=== PATIENT | male | born 1965 | race Caucasian/White ===

== ENCOUNTER 2017-02-10 11:49 | Inpatient (IN) | payer OTHER ==
[~2017-02-10] VITALS: Ht 195.6 cm; Wt 99.0 kg
[2017-02-10] MEDS ORDERED: SODIUM CHLORIDE 0.9% 1000ML 1,000 ML IV STA (12:08)
[2017-02-10] MEDS ORDERED: DIPHTHERIA/TETANUS/PERTUSSIS 0.5 ML SYR/VIAL IM. ONE (12:15)
[2017-02-10 12:25] LABS: BASO % 0.2 %; BASO ABS # 0.02 K/uL (0-0.2); COMPLETE YES; EOS % 0.9 %; HEMATOCRIT 43.6 % (42-52); IG% 0.4 %; LYMPH % 12.9 %; MEAN CELL VOLUME 85.3 fL (80-100); MEAN CORPUSCULAR HEMOGLOBIN 29.5 pg (25-34); MEAN CORPUSCULAR HGB CONC 34.6 g/dl (32-36); MEAN PLATELET VOLUME 9.8 fL (7.4-10.4); MONO % 9.5 %; NEUT % 76.1 %; PLATELET COUNT 285 K/uL (130-400); RED BLOOD COUNT 5.11 M/uL (4.7-6.1); WHITE BLOOD COUNT 10.85 K/uL (4.8-10.8)
[2017-02-10 12:46] LABS: BLOOD UREA NITROGEN 19 mg/dl (7-18); BUN/CREATININE RATIO 14.6 (10-20); CARBON DIOXIDE 29 mmol/L (21-32); CHLORIDE 103 mmol/L (98-107); GLUCOSE 86 mg/dl (70-99); POTASSIUM 4.1 mmol/L (3.5-5.1); SODIUM 139 mmol/L (136-145)
[2017-02-10 12:50] LABS: CKMB/CK RATIO 2.3 (0-3.0)
--- NOTE | 2017-02-10 12:52 | DIAGNOSTIC IMAGING REPORT ---
CHEST ONE VIEW PORTABLE HISTORY: 51 years-old Male Chest Pain acute atypical chest pain. Initial exam. COMPARISON: None available TECHNIQUE: Portable upright AP view of the chest FINDINGS: Cardiomediastinal and hilar silhouettes are within normal limits. No pneumothorax, pleural effusion, focal airspace consolidation or overt pulmonary edema. The bones are grossly intact. IMPRESSION: No acute cardiopulmonary process. The above report was generated using voice recognition software. It may contain grammatical, syntax or spelling errors. Electronically signed by: Maverick Wylie M.D. 02/10/2017 12:50 PM Dictated Date/Time: 02/10/2017 12:50 PM
[2017-02-10] MEDS ORDERED: LIDOCAINE/EPINEPH/TETRACAINE 1 EA SYR EXT STA (12:56)
--- NOTE | 2017-02-10 13:55 | DIAGNOSTIC IMAGING REPORT ---
HEAD WITHOUT CONTRAST (CT) CLINICAL HISTORY: 51 years-old Male with syncope. Acute syncopal event TECHNIQUE: Multiple axial CT images of the head were obtained without contrast. A dose lowering technique was utilized adhering to the principles of ALARA. CT DOSE: 537.48 mGy.cm COMPARISON: None. FINDINGS: No acute intracranial hemorrhage, midline shift, mass, large territorial ischemia or abnormal extra-axial collection. The calvarium is intact. The paranasal sinuses, mastoid air cells, and middle ear cavities are clear. IMPRESSION: No acute intracranial abnormality. The above report was generated using voice recognition software. It may contain grammatical, syntax or spelling errors. Electronically signed by: Maverick Wylie M.D. 02/10/2017 1:54 PM Dictated Date/Time: 02/10/2017 1:51 PM
[2017-02-10] MEDS ORDERED: LIDOCAINE/EPINEPHRINE 1% 20 ML VIAL INFIL ONE (14:00)
[2017-02-10] MEDS ORDERED: PROP1CAP PO (14:07)
[2017-02-10] MEDS ORDERED: ASPI81TA28 PO (14:07)
[2017-02-10] MEDS ORDERED: LNX25 PO (14:07)
--- NOTE | 2017-02-10 14:44 | EMERGENCY ROOM VISIT NOTE ---
ED Visit Note I was asked by Dr. Higgins to perform laceration repair on this patient. Please see his dictation for full ED course and disposition. Exam reveals a 2.5 cm laceration to the right palm, proximal tibia thumb with overlying abrasion. There is a small amount of foreign material in the wound. Verbal consent was obtained to perform the procedure. LET gel had already been applied to the laceration. 3 ml of 1% buffered lidocaine was used to further anesthetize the laceration. Once the patient was anesthetized, the Pulsavac irrigation system was used to irrigate the wound with 1 L sterile saline. A small amount of tissue was debated. The wound was explored and no foreign bodies were seen. The laceration was repaired using 3 simple interrupted 5-0 nylon sutures with the wound edges being well approximated. The patient tolerated the procedure well. Hemostasis was achieved.
[2017-02-10] MEDS ORDERED: HEPARIN 25000 UNIT/500 ML D5W ONE (15:28)
[2017-02-10] MEDS ORDERED: ALUMINUM/MAGNESIUM/SIMETH (MAALOX MAX) 30 ML UDC PO PRN (15:30)
[2017-02-10] MEDS ORDERED: MAGNESIUM HYDROXIDE SUSP 30 ML UDC PO PRN (15:30)
[2017-02-10] MEDS ORDERED: ONDANSETRON INJ 2 MG/ML 2 ML VIAL IV PRN (15:30)
[2017-02-10] MEDS ORDERED: METOPROLOL TARTRATE 1 MG/ML VIAL IV PRN (15:30)
[2017-02-10] MEDS ORDERED: ZOLPIDEM TARTRATE 5 MG TAB PO PRN (15:30)
[2017-02-10] MEDS ORDERED: NITROGLYCERIN 0.4 MG SL PER TAB CHARGE SL PRN (15:30)
[2017-02-10] MEDS ORDERED: ACETAMINOPHEN 325 MG TAB PO PRN (15:30)
[2017-02-10] MEDS ORDERED: POLYETHYLENE (MIRALAX) 17 GM PACK PO PRN (15:30)
[2017-02-10 15:35] VITALS: O2SAT 99; Ht 195.6 cm; Wt 99.0 kg
[2017-02-10] MEDS ORDERED: DIGOXIN 0.25 MG TAB PO SCH (16:00)
--- NOTE | 2017-02-10 18:15 | History and Physical ---
History & Physical Date & Time of Service: Feb 10, 2017 at 18:15 Chief Complaint: Atrial Flutter, Syncope Primary Care Physician: Craig Lang MD History of Present Illness Source: patient this a 51 yo Male with hx of Paroxysmal Afib Dx at age 27 , has been rate controlled with Rythmol( Propafenone ) and Digoxin -on Aspirin 81 mg for stroke prevention pt follows with EP Cardiology with [facility] in [place] , pt was participating in 5 Informaat run today , after running for a mile -he felt very warm and lightheaded , synopsized, fell on ground face down , mentions of losing consciousness for brief 10-15 sec , sustained mild bruise , laceration on face , hands and knees He managed to get up instantly , did not had any SOB , chest heaviness -retuned back to race and completed 5 K run he continued to experience palpitation ,came to ER for evaluation found to be in rapid Afib /flutter Past Medical/Surgical History Medical Problems: (1) Atrial fibrillation Status: Resolved Social History Smoking Status: Never Smoker Allergies Coded Allergies: No Known Allergies (Unverified , 02/10/17) Home Medications Scheduled Aspirin (Aspirin Ec), 81 MG PO DAILY Digoxin (Digoxin), 0.25 MCG PO DAILY Propafenone Hcl (Rythmol Sr), 300 MG PO BID Review of Systems Constitutional: No fever, No chills, No sweats, No weight loss, No weakness, No fatigue, No problem reported Eyes: No worsening of vision, No eye pain, No redness, No discharge, No diplopia, No problem reported ENT: No hearing loss, No unusual epistaxis, No nasal symptoms, No sore throat, No tinnitus, No dental problems, No trouble swallowing, No problem reported Cardiovascular: + palpitations, + problem reported (syncope ) Musculoskeletal: + problem reported (bruise /laceration on face /hands and knees form the fall ) Neurologic: + problem reported (syncope and loss of consciousness for breif seconds ) Physical Exam Vital Signs Date Time Temp Pulse Resp B/P (MAP) Pulse Ox O2 Delivery O2 Flow Rate FiO2 02/10/17 16:43 88 20 143/88 90 02/10/17 16:08 82 20 131/100 99 Room Air 02/10/17 16:00 82 02/10/17 15:35 99 Room Air 02/10/17 15:12 72 20 136/93 99 Room Air 02/10/17 14:20 81 20 148/86 98 Room Air 02/10/17 13:28 85 20 127/90 99 Room Air 02/10/17 12:06 99 Room Air 02/10/17 12:05 100 Room Air 02/10/17 12:04 100 02/10/17 11:52 36.7 93 17 125/64 98 Room Air General Appearance: no apparent distress ENT: + pertinent finding (bruise in lower face and upper and lowe lips from fall , no active bleeding ) Neck: supple Respiratory/Chest: lungs clear, normal breath sounds Cardiovascular: + irregularly irregular Abdomen/GI: non tender, soft Neurologic/Psych: no motor/sensory deficits, alert, oriented x 3 Skin: + pertinent finding (briuse in knee , hands and face /superfical laceration due to fall ) Diagnostics Laboratory Results Results Past 24 Hours Test 02/10/17 12:00 Range/Units White Blood Count 10.85 4.8-10.8 K/uL Red Blood Count 5.11 4.7-6.1 M/uL Hemoglobin 15.1 14.0-18.0 g/dL Hematocrit 43.6 42-52 % Mean Corpuscular Volume 85.3 80-100 fL Mean Corpuscular Hemoglobin 29.5 25-34 pg Mean Corpuscular Hemoglobin Concent 34.6 32-36 g/dl Platelet Count 285 130-400 K/uL Mean Platelet Volume 9.8 7.4-10.4 fL Neutrophils (%) (Auto) 76.1 % Lymphocytes (%) (Auto) 12.9 % Monocytes (%) (Auto) 9.5 % Eosinophils (%) (Auto) 0.9 % Basophils (%) (Auto) 0.2 % Neutrophils # (Auto) 8.26 1.4-6.5 K/uL Lymphocytes # (Auto) 1.40 1.2-3.4 K/uL Monocytes # (Auto) 1.03 0.11-0.59 K/uL Eosinophils # (Auto) 0.10 0-0.5 K/uL Basophils # (Auto) 0.02 0-0.2 K/uL RDW Standard Deviation 40.1 36.4-46.3 fL RDW Coefficient of Variation 12.8 11.5-14.5 % Immature Granulocyte % (Auto) 0.4 % Immature Granulocyte # (Auto) 0.04 0.00-0.02 K/uL Prothrombin Time 11.0 9.0-12.0 SECONDS Prothromb Time International Ratio 1.0 0.9-1.1 Activated Partial Thromboplast Time 27.2 21.0-31.0 SECONDS Partial Thromboplastin Ratio 1.0 D-Dimer 630 0-500 ug/L FEU Sodium Level 139 136-145 mmol/L Potassium Level 4.1 3.5-5.1 mmol/L Chloride Level 103 98-107 mmol/L Carbon Dioxide Level 29 21-32 mmol/L Anion Gap 7.0 3-11 mmol/L Blood Urea Nitrogen 19 7-18 mg/dl Creatinine 1.30 0.60-1.40 mg/dl Est Creatinine Clear Calc Drug Dose 83.8 ml/min Estimated GFR () 72.7 Estimated GFR (Non- 62.7 BUN/Creatinine Ratio 14.6 10-20 Random Glucose 86 70-99 mg/dl Calcium Level 9.0 8.5-10.1 mg/dl Total Creatine Kinase 209 39-308 U/L Creatine Kinase MB 4.8 0.5-3.6 ng/ml Creatine Kinase MB Ratio 2.3 0-3.0 Troponin I < 0.015 0-0.045 ng/ml Digoxin Level 0.9 0.8-2.0 ng/ml CXR normal EKG Aflutter Impression Assessment and Plan 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 /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: Hx paroxysmal afib -has been on Rythmol /Digoxin presented with rapid afib /possible lead to syncope admit to tele Cardiology eval requested pt is continued with out pt antiarrhythmic IV heparin ( CT head -negative for any bleed due to fall ) SYNCOPE : possible due to above no complain of chest pain or SOB serial cardiac markers ordered /ECHO ordered for wall motion abnormality monitor in tele FULL CODE DVT PROPHYLAXIS : IV heparin DISPOSITION : expected to be discharged home when medically stable Level of Care Telemetry Advanced Directives Existing Living Will: No Existing Power of Test Development Engineer: No VTE Prophylaxis VTE Risk Assessment Done? Y/N: Yes Risk Level: Low Given or contraindicated: Other Anticoagulation (IV heparin ) Additional Copies To Craig Lang MD
--- NOTE | 2017-02-10 19:01 | EMERGENCY ROOM VISIT NOTE ---
History Report prepared by David: Marizol Olivas Under the Supervision of: Dr. Jb Higgins D.O. 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 The patient was running a 5k when he started to feel hot around the mile niyah. He kept running and ended up losing consciousness. He fell to the ground and was there for about 8-12 seconds. He reports cuts to his hands, knees, and face. He denies any chest pain, SOB, nausea, vomiting, diarrhea, dysuria, headache, change in vision, neck pain, knee pain, missing teeth, or misalignment of the teeth. The patient has a history of atrial fibrillation since age 27 which comes and goes. He is on digoxin, Rythmol, and aspirin. He denies any missed medications. He notes that 1.5 weeks ago, he felt that he had less power while biking. He has not been biking since then. He has not felt weak since then. He is usually able to tell when he is in a fib as simple activities become difficult. It has been several years since he was last in a fib. He is unsure when his last tetanus shot was. 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 Pt denies change in vision, knee pain, missing teeth, or misalignment of the teeth Review of Systems See HPI for pertinent positives & negatives. A total of 10 systems reviewed and were otherwise negative. Past Medical & Surgical Medical Problems: (1) Atrial fibrillation (2) Atrial flutter (3) Syncope Family History No pertinent family history stated. Social History Marital Status: Current/Historical Medications Scheduled Aspirin (Aspirin Ec), 81 MG PO DAILY Digoxin (Digoxin), 0.25 MCG PO DAILY Propafenone Hcl (Rythmol Sr), 300 MG PO BID Allergies Coded Allergies: No Known Allergies (Unverified , 02/10/17) Physical Exam Vital Signs Date Time Temp Pulse Resp B/P (MAP) Pulse Ox O2 Delivery O2 Flow Rate FiO2 02/10/17 15:12 72 20 136/93 99 Room Air 02/10/17 14:20 81 20 148/86 98 Room Air 02/10/17 13:28 85 20 127/90 99 Room Air 02/10/17 12:06 99 Room Air 02/10/17 12:05 100 Room Air 02/10/17 12:04 100 02/10/17 11:52 36.7 93 17 125/64 98 Room Air Physical Exam GENERAL: sitting up in bed, alert, well appearing, well nourished, no distress, non-toxic HEAD: normal cephalic, abrasion over the upper lip and lower lip. EYE EXAM: normal conjunctiva, PERRL and EOM's grossly intact OROPHARYNX: no exudate, no erythema, lips, buccal mucosa, and tongue normal and mucous membranes are moist EARS: TMs clear b/l NECK: supple, no nuchal rigidity, no adenopathy, non-tender CHEST: stable to compression anteriorly and posteriorly LUNGS: clear to auscultation. Normal chest wall mechanics HEART: irregularly irregular, no murmurs, S1 normal and S2 normal ABDOMEN: abdomen soft, non-tender, normo-active bowel sounds, no masses, no rebound or guarding. PELVIS: stable to compression anteriorly and posteriorly BACK: Back is symmetrical on inspection and there is no deformity, no midline tenderness, no CVA tenderness. UPPER EXTREMITIES: abrasion at the bases of bilateral palms with 1.5 cm laceration on the right palm, mild venous oozing. Full active and passive range of motion of all joints without tenderness to palpation LOWER EXTREMITIES: Abrasion over the bilateral knees, full active and passive range of motion of all joints without tenderness to palpation NEURO EXAM: Normal sensorium, cranial nerves II-XII grossly intact, normal speech, no gross weakness of arms, no gross weakness of legs. GCS: 15. Medical Decision & Procedures ER Provider Diagnostic Interpretation: Radiology results as stated below per my review and the radiologist's interpretation: CHEST ONE VIEW PORTABLE HISTORY: 51 years-old Male Chest Pain acute atypical chest pain. Initial exam. COMPARISON: None available TECHNIQUE: Portable upright AP view of the chest FINDINGS: Cardiomediastinal and hilar silhouettes are within normal limits. No pneumothorax, pleural effusion, focal airspace consolidation or overt pulmonary edema. The bones are grossly intact. IMPRESSION: No acute cardiopulmonary process. The above report was generated using voice recognition software. It may contain grammatical, syntax or spelling errors. Electronically signed by: Maverick Wylie M.D. 02/10/2017 12:50 PM Dictated Date/Time: 02/10/2017 12:50 PM HEAD WITHOUT CONTRAST (CT) CLINICAL HISTORY: 51 years-old Male with syncope. Acute syncopal event TECHNIQUE: Multiple axial CT images of the head were obtained without contrast. A dose lowering technique was utilized adhering to the principles of ALARA. CT DOSE: 537.48 mGy.cm COMPARISON: None. FINDINGS: No acute intracranial hemorrhage, midline shift, mass, large territorial ischemia or abnormal extra-axial collection. The calvarium is intact. The paranasal sinuses, mastoid air cells, and middle ear cavities are clear. IMPRESSION: No acute intracranial abnormality. The above report was generated using voice recognition software. It may contain grammatical, syntax or spelling errors. Electronically signed by: Maverick Wylie M.D. 02/10/2017 1:54 PM Dictated Date/Time: 02/10/2017 1:51 PM Laboratory Results 02/10/17 12:00 Red Blood Count 5.11, Mean Corpuscular Volume 85.3, Mean Corpuscular Hemoglobin 29.5, Mean Corpuscular Hemoglobin Concent 34.6, Mean Platelet Volume 9.8, Neutrophils (%) (Auto) 76.1, Lymphocytes (%) (Auto) 12.9, Monocytes (%) (Auto) 9.5, Eosinophils (%) (Auto) 0.9, Basophils (%) (Auto) 0.2, Neutrophils # (Auto) 8.26, Lymphocytes # (Auto) 1.40, Monocytes # (Auto) 1.03, Eosinophils # (Auto) 0.10, Basophils # (Auto) 0.02 02/10/17 12:00 Test 02/10/17 12:00 White Blood Count 10.85 K/uL (4.8-10.8) Red Blood Count 5.11 M/uL (4.7-6.1) Hemoglobin 15.1 g/dL (14.0-18.0) Hematocrit 43.6 % (42-52) Mean Corpuscular Volume 85.3 fL (80-100) Mean Corpuscular Hemoglobin 29.5 pg (25-34) Mean Corpuscular Hemoglobin Concent 34.6 g/dl (32-36) Platelet Count 285 K/uL (130-400) Mean Platelet Volume 9.8 fL (7.4-10.4) Neutrophils (%) (Auto) 76.1 % Lymphocytes (%) (Auto) 12.9 % Monocytes (%) (Auto) 9.5 % Eosinophils (%) (Auto) 0.9 % Basophils (%) (Auto) 0.2 % Neutrophils # (Auto) 8.26 K/uL (1.4-6.5) Lymphocytes # (Auto) 1.40 K/uL (1.2-3.4) Monocytes # (Auto) 1.03 K/uL (0.11-0.59) Eosinophils # (Auto) 0.10 K/uL (0-0.5) Basophils # (Auto) 0.02 K/uL (0-0.2) RDW Standard Deviation 40.1 fL (36.4-46.3) RDW Coefficient of Variation 12.8 % (11.5-14.5) Immature Granulocyte % (Auto) 0.4 % Immature Granulocyte # (Auto) 0.04 K/uL (0.00-0.02) Prothrombin Time 11.0 SECONDS (9.0-12.0) Prothromb Time International Ratio 1.0 (0.9-1.1) Activated Partial Thromboplast Time 27.2 SECONDS (21.0-31.0) Partial Thromboplastin Ratio 1.0 D-Dimer 630 ug/L FEU (0-500) Anion Gap 7.0 mmol/L (3-11) Est Creatinine Clear Calc Drug Dose 83.8 ml/min Estimated GFR () 72.7 Estimated GFR (Non- 62.7 BUN/Creatinine Ratio 14.6 (10-20) Calcium Level 9.0 mg/dl (8.5-10.1) Total Creatine Kinase 209 U/L (39-308) Creatine Kinase MB 4.8 ng/ml (0.5-3.6) Creatine Kinase MB Ratio 2.3 (0-3.0) Troponin I < 0.015 ng/ml (0-0.045) Digoxin Level 0.9 ng/ml (0.8-2.0) Laboratory results per my review. Medications Administered Medications (Trade) Dose Ordered Sig/Cheryl Route Start Time Stop Time Status Last Admin Dose Admin Sodium Chloride 1,000 ml @ 999 mls/hr Q1H1M STAT IV 02/10/17 12:08 02/10/17 13:08 DC 02/10/17 13:27 999 MLS/HR Diphtheria/ Pertussis/Tetanus Vacc (Adacel Inj) 0.5 ml ONCE ONCE IM. 02/10/17 12:15 02/10/17 12:16 DC 02/10/17 13:27 0.5 ML Tetracaine/ Epinephrine/ Lidocaine (L.e.t. Gel 4%/ 1:100/0.5%) 1 ea NOW STAT EXT 02/10/17 12:56 02/10/17 12:57 DC 02/10/17 13:27 1 EA ECG Indication: syncope Rate (beats per minute): 75 Rhythm: atrial flutter (with variable block) Findings: T-wave inversion (lead 3), other (normal intervals) ED Course ED COURSE: Vital signs were reviewed and showed normal vitals. The patients medical record was reviewed The above diagnostic studies were performed and reviewed. ED treatments and interventions as stated above. 1157: The patient was evaluated in room C3. A complete history and physical examination was performed. 1208: NSS 1000 ml @ 999 mls/hr IV. 1215: Adacel Inj 0.5 ml IM. 1256: LET Gel EXT. 1328: I reevaluated the patient. He is going to CT. He is agreeable to staying. 1441: I reviewed the patient's case with Dr. Grimes, [facility] hospitalist. She will evaluate the patient for further management. She recommends heparin drip and bolus. She recommends speaking with Dr. Enciso. 1500: Upon reevaluation, the patient is resting comfortably. I discussed my findings with the patient and he understands and agrees with the treatment plan. Based on the patients age, coexisting illnesses, exam and lab findings the decision to treat as an inpatient was made. The patient remained stable while under my care. The patient will be evaluated for further management. 1450: Heparin Sodium/Dextrose IV. 1507: I discussed the patient's case with Dr. Enciso [facility]. He agrees with anticoagulation and bringing him in to the hospital. Medical Decision Differential diagnosis includes etiologies such as vasovagal event, infection, hypoglycemia, electrolyte abnormalities, cardiac sources, intracerebral event, toxicologic, neurologic, as well as others were entertained. Patient is a 51-year-old male that presents to the ER following a syncopal episode while running. As a history of paroxysmal A. fib. He thinks the last time he was in this was over a year ago. Patient did get up and finish the race. Patient has no other complaints. He does have bilateral abrasions of the knees and right hand was repaired by my PA which was roughly 2 cm. Tetanus was updated. CT head was negative. Patient denied any hemoptysis, hematuria, hematemesis, or dark tarry stools. No previous brain bleeds. He was started on heparin drip. I discussed this case with cardiology and internal medicine. He was admitted for syncope likely secondary to atrial flutter. Sutures will need to be removed in 7 days. Medication Reconcilliation Current Medication List: was personally reviewed by me Blood Pressure Screening Patient's blood pressure: Normal blood pressure Blood pressure disposition: Did not require urgent referral Consults Time Called: 1432 Consulting Physician: Dr. Grimes [facility] hospitalist Returned Call: [phone] I reviewed the patient's case with her. She will evaluate the patient for further management. She recommends heparin drip and bolus. She recommends speaking with Dr. Enciso. Additional Consults: Time Called: 1450 Consulted Physician: Dr. Enciso [facility] Returned Call: [phone] Additional Comments: I discussed the patient's case with him. He agrees with anticoagulation and bringing him in to the hospital. Impression Primary Impression: Syncope Additional Impressions: Atrial flutter Laceration Scribe Attestation The scribe's documentation has been prepared under my direction and personally reviewed by me in its entirety. I confirm that the note above accurately reflects all work, treatment, procedures, and medical decision making performed by me. Departure Information Dispostion Being Evaluated By Hospitalist Referrals No Doctor, Assigned (PCP) Patient Instructions My [facility] Health Problem Qualifiers Primary Impression: Syncope Syncope type: unspecified Qualified Codes: R55 - Syncope and collapse Additional Impressions: Atrial flutter Atrial flutter type: typical Qualified Codes: I48.3 - Typical atrial flutter
[2017-02-10 19:27] VITALS: BP 130/78; PULSE 76; TEMP 36.7; O2SAT 97
[2017-02-10] MEDS ORDERED: PROPAFENONE HCL 150 MG TAB PO SCH (21:00)
[2017-02-10 22:51] LABS: PARTIAL THROMBOPLASTIN RATIO 2.7
[2017-02-10 22:52] LABS: CKMB/CK RATIO 1.9 (0-3.0)
[2017-02-10 23:35] VITALS: BP 113/73; PULSE 85; TEMP 36.9; O2SAT 98
[2017-02-11] VITALS (13 sets, daily range): BP systolic 91–123; BP diastolic 57–77; PULSE 58–88; TEMP 36.4–36.9; O2SAT 94–99
--- NOTE | 2017-02-11 01:03 | CARDIOLOGY CONSULTATION ---
DATE OF CONSULTATION: 02/10/2017 PRIMARY CARE PHYSICIAN: Dr. Brian Lang. INDICATIONS: Exercise-induced syncope, history of paroxysmal atrial fibrillation. HISTORY OF PRESENT ILLNESS: The patient is a 51-year-old male whose history per patient and review of records is notable for longstanding paroxysmal atrial fibrillation dating back to age 27. He has been maintained predominantly in sinus rhythm on a combination of digoxin and propafenone. He notes, in review of records recently and history recently, recent decline in exercise capacity, feels he may have been going in and out of atrial fibrillation for upwards of months. He notes 2 weeks ago having significant difficulty while exercising, riding a bicycle. Today, he participated in a 5K run, and while running, lost consciousness and fell to the ground, striking his knee, hands and face. He notes no acute precursor other than symptoms of feeling suddenly warm and flushed. Notes no sense of tachypalpitations. He awakened on the ground and immediately was able to get up and complete the race. He notes no stumble or fall as an inciting cause. He did feel he lost transient consciousness that caused the issue. Notes no associated chest pains. Notes no worsening shortness of breath. Notes no orthopnea, PND or peripheral edema. Notes no melena, hematochezia, dysuria or hematuria. Has been taking medications as prescribed. Weight is up approximately 10 pounds, but notes no acute change or abnormalities. He is, in the Emergency Room, alert and answering questions appropriately, abrasions being attended to. ALLERGIES: Noted to be none. MEDICATIONS: Per records were digoxin 250 mcg p.o. daily, propafenone 300 mg p.o. b.i.d. and aspirin 81 mg per day. PAST SURGICAL HISTORY: Notable for arthroscopic knee surgery, prior right shoulder surgery. FAMILY HISTORY: Notable for brother with atrial fibrillation. 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 He is a nonsmoker, rare alcohol user. He is usually active but has been slightly more sedentary recently. PHYSICAL EXAMINATION: VITAL SIGNS: Heart rate is 70-90 and irregular. Blood pressure is 136/90. HEENT: Normocephalic. There are abrasions of his face, nose and chin. There is no overt dental injury. NECK: Thin. There is no jugular venous distention. There are no carotid bruits. Carotid pulses are 2/4 without delay. LUNGS: Clear to auscultation. CARDIOVASCULAR: Irregularly irregular with normal S1, S2. There is no murmur, gallop or rub. PMI is nondisplaced. ABDOMEN: Soft, nontender. There is no palpable hepatosplenomegaly. There is no hepatojugular reflux. EXTREMITIES: Femoral and distal pulses are intact. There is an abrasion overlying left knee which is bandaged. There is no edema. NEUROLOGIC: He is alert and oriented, answering questions appropriately and in detail. DATA: EKG in the Emergency Room today demonstrates atrial fibrillation, rate of 75, nonspecific intraventricular conduction delay. LABORATORY STUDIES: White cell count is 10.8, hemoglobin is 15.1, hematocrit is 43.6. Sodium is 139, potassium is 4.1, chloride is 103, bicarbonate is 29, BUN is 19, creatinine is 1.3. CK is 209, MB fraction 4.8. Troponin is less than 0.015. D-dimer was elevated at 630. Head CT revealed no injury. Chest x-ray reveals no infiltrate or edema. IMPRESSION: A 51-year-old male with history of longstanding paroxysmal (lone) atrial fibrillation, who did suffer a syncopal event while running mildly competitive 5K. He was able to wake up promptly from the ground and jump up and finish the run. The patient is seen now in the Emergency Room due to the event. He is in atrial fibrillation. He is uncertain to the duration of arrhythmia. Notes he potentially could have been in and out of arrhythmia for some weeks or months. Current rates are controlled. We will plan on admitting to the hospital on IV heparin, continuing usual medications including propafenone and digoxin, assess for possible spontaneous conversion overnight. Echocardiogram has been ordered for a.m. The patient will be kept n.p.o. to consider whether indications are present for proceeding with transesophageal cardioversion versus anticoagulation and follow up given history of syncope. He will likely warrant a stress test as part of evaluation. Consideration may be made for change in antiarrhythmic therapy or further EP evaluation. IVONED
[2017-02-11 05:23] LABS: MEAN CELL VOLUME 86.4 fL (80-100); MEAN CORPUSCULAR HGB CONC 33.6 g/dl (32-36); MEAN PLATELET VOLUME 9.9 fL (7.4-10.4); PLATELET COUNT 245 K/uL (130-400); RED BLOOD COUNT 4.86 M/uL (4.7-6.1); WHITE BLOOD COUNT 9.02 K/uL (4.8-10.8)
[2017-02-11 05:46] LABS: PARTIAL THROMBOPLASTIN RATIO 4.1
[2017-02-11 05:56] LABS: BUN/CREATININE RATIO 11.6 (10-20); CALCIUM 8.2 mg/dl (8.5-10.1); CREATININE 1.1 mg/dl (0.60-1.40); MAGNESIUM 2.1 mg/dl (1.8-2.4); POTASSIUM 3.8 mmol/L (3.5-5.1)
[2017-02-11 06:02] LABS: CHOLESTEROL/HDL RATIO 2.4; CKMB/CK RATIO 1.8 (0-3.0); PHOSPHORUS 3.2 mg/dl (2.5-4.9)
[2017-02-11] MEDS: HEPARIN 25,000 UNIT/500ML D5W 500 ML IV PRN (08:29)
--- NOTE | 2017-02-11 09:11 | ECHOCARDIOGRAM REPORT ---
*NOTICE TO RECEIVING [employer] AGENCY This information is strictly Confidential and protected under [place] law. [place] law prohibits you from making any further disclosure of this information unless further disclosure is expressly permitted by the written consent of the person to whom it pertains or is authorized by law. A general authorization for the release of medical or other information is not sufficient for this purpose. Hospital accepts no responsibility if the information is made available to any other person, INCLUDING THE PATIENT. Interpretation Summary * Name: EV VERA Study Date: 02/11/2017 06:29 AM BP: 112/70 mmHg * Patient Location: C.2T\S\S239\S\2 HR: 75 * : 1965 (M/d/yyyy) Gender: Male Height: 77 in * Age: 51 yrs Ethnicity: [place] Weight: 230 lb * Ordering Physician: Leisa Grimes * Referring Physician: Self, Referred * Performed By: Shalini Butt RDCS * * Reason For Study: A-Flutter * BSA: 2.4 m2 * -- Conclusions -- * The left ventricle is normal in size. * There is borderline concentric left ventricular hypertrophy. * No regional wall motion abnormalities noted. * Ejection Fraction = 50-55%. * There is no significant valvular disease. * Mild aortic root dilatation. Procedure Details * A complete two-dimensional transthoracic echocardiogram was performed (2D, M-mode, Doppler and color flow Doppler). Left Ventricle * The left ventricle is normal in size. * There is borderline concentric left ventricular hypertrophy. * Ejection Fraction = 50-55%. * Left ventricular systolic function is normal. * No regional wall motion abnormalities noted. Right Ventricle * The right ventricle is normal in size and function. Atria * The left atrial size is normal. * Right atrial size is normal. * No ASD detected; PFO is not assessed. Mitral Valve * The mitral valve is normal. * There is no mitral valve stenosis. * There is trace mitral regurgitation. Tricuspid Valve * The tricuspid valve is normal. * There is no tricuspid stenosis. * There is trace tricuspid regurgitation. Aortic Valve * The aortic valve is trileaflet. * No hemodynamically significant valvular aortic stenosis. * No aortic regurgitation is present. Pulmonic Valve * The pulmonic valve is not well visualized. Great Vessels * Mild aortic root dilatation. Pericardium/Pleural * There is no pericardial effusion. Great Vessels * Normal inferior vena cava diameter and respiratory variation suggests normal central venous pressure. MMode 2D Measurements and Calculations IVSd 1.1 cm LVIDd 4.2 cm LVIDs 3.1 cm LVPWd 1.2 cm IVS/LVPW 0.92 FS 25.4 % EDV(Teich) 79.5 ml ESV(Teich) 39.3 ml EF(Teich) 50.5 % EDV(cubed) 75.2 ml ESV(cubed) 31.2 ml EF(cubed) 58.6 % LV mass(C)d 178.6 grams LV mass(C)dI 75.3 grams/m\S\2 CO(Teich) 2.8 l/min CI(Teich) 1.2 l/min/m\S\2 SV(Teich) 40.2 ml SI(Teich) 16.9 ml/m\S\2 CO(cubed) 3.1 l/min CI(cubed) 1.3 l/min/m\S\2 SV(cubed) 44.0 ml SI(cubed) 18.6 ml/m\S\2 Ao root diam 4.3 cm Ao root area 14.2 cm\S\2 ACS 2.3 cm LA dimension 2.7 cm asc Aorta Diam 3.6 cm LA/Ao 0.63 LVOT diam 2.0 cm LVOT area 3.3 cm\S\2 LVAd ap4 37.5 cm\S\2 LVLd ap4 8.5 cm EDV(MOD-sp4) 134.0 ml LVAs ap4 25.0 cm\S\2 LVLs ap4 7.4 cm ESV(MOD-sp4) 68.6 ml EF(MOD-sp4) 48.8 % LVAd ap2 38.9 cm\S\2 LVLd ap2 8.7 cm EDV(MOD-sp2) 145.0 ml LVAs ap2 24.0 cm\S\2 LVLs ap2 7.8 cm ESV(MOD-sp2) 63.2 ml EF(MOD-sp2) 56.4 % CO(MOD-sp4) 4.6 l/min CI(MOD-sp4) 1.9 l/min/m\S\2 SV(MOD-sp4) 65.4 ml SI(MOD-sp4) 27.6 ml/m\S\2 CO(MOD-sp2) 5.7 l/min CI(MOD-sp2) 2.4 l/min/m\S\2 SV(MOD-sp2) 81.8 ml SI(MOD-sp2) 34.5 ml/m\S\2 Doppler Measurements and Calculations MV E max luis a 52.9 cm/sec MV A max luis a 41.2 cm/sec MV E/A 1.3 MV dec time 0.29 sec Ao V2 max 69.8 cm/sec Ao max PG 1.9 mmHg Ao max PG (full) 0.23 mmHg JG(V,A) 3.1 cm\S\2 JG(V,D) 3.1 cm\S\2 LV V1 max PG 1.7 mmHg LV V1 max 65.5 cm/sec PA V2 max 105.9 cm/sec PA max PG 4.5 mmHg PA acc slope 243.9 cm/sec\S\2 PA acc time 0.17 sec PI max luis a 154.7 cm/sec PI max PG 9.6 mmHg PI dec slope 135.7 cm/sec\S\2 PI P1/2t 333.9 msec TR max luis a 85.3 cm/sec PA pr(Accel) 2.9 mmHg
[2017-02-11] MEDS ORDERED: NURSING VERBAL MED ORDER ONE (10:00)
[2017-02-11] MEDS ORDERED: BACITRACIN OINT 15 GM TUBE EXT PRN (10:00)
[2017-02-11] MEDS ORDERED: PERFLUTREN LIPID MICROSPHERE (DEFINITY) IV ONE (11:22)
[2017-02-11 12:41] LABS: PARTIAL THROMBOPLASTIN RATIO 2.1
[2017-02-11] MEDS ORDERED: MEPERIDINE HCL 50 MG/ML CARP ONE (12:59)
[2017-02-11] MEDS ORDERED: MIDAZOLAM HCL 1 MG/ML 2ML VIAL ONE (12:59)
[2017-02-11] MEDS ORDERED: BENZOCAIN/TETRACA/BUTAM SPRAY 200 APPLN/20 GM SPRY ONE (12:59)
[2017-02-11] MEDS ORDERED: CANNULA ONE ×2 (13:00)
[2017-02-11] MEDS ORDERED: POTASSIUM CHLORIDE 10 MEQ TABCR PO STA (14:34)
[2017-02-11] MEDS: ASPIRIN 81 MG ECTAB PO SCH (14:54)
--- NOTE | 2017-02-11 15:17 | PROGRESS NOTE ---
DATE: 02/11/2017 CARDIOLOGY CONSULTATION FOLLOWUP NOTE The patient seen and examined. Chart, medications, telemetry reviewed. SUBJECTIVE: The patient notes no complaints today other than minor abrasions to face, knees, hands, mild soreness at dentition without loose teeth. Notes no syncope or near syncope. Notes no chest pains. Notes no tachypalpitations. Remains in atrial fibrillation. OBJECTIVE: VITAL SIGNS: Heart rate is 92, blood pressure is 105/71. HEENT: Normocephalic. There is an abrasion healing in the nose, upper and lower lips. LUNGS: Clear to auscultation. CARDIOVASCULAR: Irregularly irregular There is no S3 gallop. ABDOMEN: Soft, nontender. EXTREMITIES: Without cyanosis or clubbing. There is no peripheral edema. There are intact distal pulses. DATA: Stress echocardiography earlier today, the patient exercised to a high level workload of 9 minutes and 30 seconds with very rapid response, heart response to exercise. The patient tolerating exercise; however, at heart rate above maximum for 7 minutes. Peak heart rate was greater than 200 beats per minute. There were no ST segment changes. Her echocardiographic findings suggest ischemia. There is no prolongation of QT or worsening conduction abnormalities. Transesophageal echocardiography, this was performed demonstrates normal left ventricular size, thickness and function. There is trace mitral and tricuspid insufficiency. There is no left atrial appendage, thrombus or mass. There is a trivial patent foramen ovale present. IMPRESSION AND PLAN: A 51-year-old male with history of standing paroxysmal atrial fibrillation, previously controlled in sinus rhythm predominantly with propafenone and digoxin, though notes recent change in frequency of atrial arrhythmias and subsequent syncopal event while exercising yesterday. Discussed findings in detail with the patient as well as patient's primary electrophysiology service and recommended after above testing that would continue to withhold digoxin and propafenone, will begin Tikosyn in a.m. anticipate at least 48 hours of telemetry monitoring. Will add low dose beta mukesh if necessary for rate control. Continue anticoagulation with heparin with planned transition to Eliquis for at least 30 days post-hospitalization. The patient is agreeable to plan. Baseline EKG ordered for a.m., potassium will be supplemented this evening. Will follow closely in the hospital. YELENA
--- NOTE | 2017-02-11 16:41 | EXERCISE STRESS ECHO ---
*NOTICE TO RECEIVING [employer] AGENCY This information is strictly Confidential and protected under [place] law. [place] law prohibits you from making any further disclosure of this information unless further disclosure is expressly permitted by the written consent of the person to whom it pertains or is authorized by law. A general authorization for the release of medical or other information is not sufficient for this purpose. Hospital accepts no responsibility if the information is made available to any other person, INCLUDING THE PATIENT. Interpretation Summary * Name: EV VERA Study Date: 02/11/2017 09:57 AM BP: 120/82 mmHg * Patient Location: C.2T\S\S239\S\2 HR: 114 * : 1965 (M/d/yyyy) Gender: Male Height: 77 in * Age: 51 yrs Ethnicity: [place] Weight: 244 lb * Ordering Physician: Vern Enciso * Referring Physician: Self, Referred * Performed By: Shalini Butt RDCS * * Reason For Study: A-Fib * BSA: 2.4 m2 * _ workload achieved. * There is no inducible ischemia noted at peak stress. * Normal resting wall motion and no stress-induced wall motion abnormality. * -- Conclusions -- * Baseline EKG Atrial fibrillation * There was an accelerated heart rate response to exercise, maximum heart rate 210 bpm. Procedure Details * ECHOEX, CPT #81811 * A contrast injection of Definity was performed to improve assessment of LV function. * Contrast was injected into an intravenous site in the left arm. * One vial of Definity ultrasound contrast was diluted in normal saline to a total volume of 10 ml. A total of '5' ml of solution was administered during imaging. * Lot # [id number] of Definity utilized for procedure. * Expiration date FEB 27. * The attending nurse who injected the contrast agent was Brittny Mendez RN. Left Ventricle * The left ventricle is normal in size. * There is normal left ventricular wall thickness. * Ejection Fraction = 55-60%. * Resting wall motion: Normal. Stress wall motion: Appropriate increase in Left ventricular systolic function and decrease in cavity size. No stress induced segmental wall motion abnormalities. Stress Parameters * Baseline EKG Atrial fibrillation * The stress ECG response was normal * The stress portion of this study was personally supervised by the undersigned interpreting physician. * Rest heart rate was '114' BPM. * Rest blood pressure was '120/82' * Maximum heart rate achieved was 210 bpm. * Maximum heart rate was 125 % of maximum age-predicted heart rate. * Maximum blood pressure was '137/59' * Total exercise time was '9:30' * Maximum exercise MET level achieved was '10.90' METS * Maximum treadmill speed was '4.20' miles per hour. * Maximum treadmill elevation was '16.00'% grade. * Exercise was terminated due to 'achieving target heart rate' * There was an accelerated heart rate response to exercise, maximum heart rate 210 bpm.
--- NOTE | 2017-02-11 16:46 | TEE ---
*NOTICE TO RECEIVING [employer] AGENCY This information is strictly Confidential and protected under [place] law. [place] law prohibits you from making any further disclosure of this information unless further disclosure is expressly permitted by the written consent of the person to whom it pertains or is authorized by law. A general authorization for the release of medical or other information is not sufficient for this purpose. Hospital accepts no responsibility if the information is made available to any other person, INCLUDING THE PATIENT. Interpretation Summary * Name: EV VERA Study Date: 02/11/2017 01:09 PM BP: 102/73 mmHg * Patient Location: C.2T\S\S239\S\2 HR: 90 * : 1965 (M/d/yyyy) Gender: Male Height: 76 in * Age: 51 yrs Ethnicity: CA Weight: 244 lb * Ordering Physician: Vern Enciso * Referring Physician: Self, Referred * Performed By: Alycia Sandoval RCS * * Reason For Study: A-FIB * BSA: 2.4 m2 * -- Conclusions -- * No thrombus is detected in the left atrial appendage. * No left atrial mass or thrombus visualized. * The left ventricle is normal in size. * There is normal left ventricular wall thickness. * The left ventricle is normal in structure and function. * Ejection Fraction = 55-60%. * A trivial patent foramen ovale is noted Procedure Details * MARIJA Probe #1 utilized for procedure. * The study was performed in Cardiopulmonary Department. * Time out was conducted by the physician, nurse, and cmm technician with positive identification of patient and procedure. * Informed consent for Transesophageal Echocardiogram was obtained prior to the procedure. * An intravenous line was placed. A topical anesthetic agent was used for oropharangeal anesthesia. A bite block was inserted. * Meperidine 37.5 mg administered for sedation. * Midazolam 6 mg administered for sedation. * The posterior oropharynx was anesthetized using a topical anesthetic spray. A bite guard was inserted. * The patient's vital signs, including blood pressure, heart rate, pulse oximetry and cardiac rhythm were monitored throughout the procedure . * A multifrequency, multiplane transesopheageal echocardiographic endoscope was inserted and manipulated in the standard fashion to achieve multiplane views. * The transesophageal probe was passed without difficulty. * A 2D transesophageal echocardiogram with spectral and color flow Doppler was performed. * Contrast injection with agitated saline was performed. * A 2D transesophageal echocardiogram with Doppler and color flow Doppler was performed. Left Ventricle * The left ventricle is normal in size. * There is normal left ventricular wall thickness. * The left ventricle is normal in structure and function. * Ejection Fraction = 55-60%. * The left ventricular wall motion is normal. Right Ventricle * The right ventricular cavity size is normal (basal dimension <4.2 cm in right ventricular apical 4-chamber view). * The right ventricular systolic function is normal. Atria * The left atrial size is normal. * No thrombus is detected in the left atrial appendage. * No left atrial mass or thrombus visualized. * Right atrial size is normal. * Patent foramen ovale Mitral Valve * The mitral valve anatomy is normal. * There is no mitral valve stenosis. * There is trace mitral regurgitation. Tricuspid Valve * The tricuspid valve anatomy is normal. * There is trace tricuspid regurgitation. Aortic Valve * The aortic valve is normal in structure and function. * No hemodynamically significant valvular aortic stenosis. * There is no significant aortic regurgitation. Pulmonic Valve * The pulmonic valve is normal in structure and function. Great Vessels * Mild aortic root dilatation. * Ascending aorta of normal dimension Pericardium * There is no pericardial effusion.
--- NOTE | 2017-02-11 21:52 | Progress Note ---
Internal Med Progress Note Date of Service: Feb 11, 2017. Provider Documentation: SUBJECTIVE: no complain of chest pain or SOB remains in rate controlled Afib /flutter OBJECTIVE: Vital Signs-as noted below Exam: General-no sign of distress Eyes-sclera non icteric ENT-superficial laceration on face Neck-no JVD Lungs-CTA Heart-irregular Abdomen-soft,non tender Extremities-superficial laceration on knees and hands Neuro-AAO x3 no focal deficit Lab data as noted below. ASSESSMENT & PLAN: AFLUTTER /AFIB: Hx paroxysmal afib -has been on Rythmol /Digoxin presented with rapid afib /possible lead to syncope Cardiology eval appreciated cardiac stress test -negative for stress induced ischemia MARIJA shows no evidence of Atrial appendage thrombus pt is continued with IV heparin antiarrhythmic changed to Tikosyn monitor in tele in next 48 hrs daily EKG to assess Qtc SYNCOPE : no further episode , possible due to above no complain of chest pain or SOB cardiac stress test negative for stress induced ischemia FULL CODE DVT PROPHYLAXIS : IV heparin DISPOSITION : expected to be discharged home when medically stable DVT PROPHYLAXIS IV heparin will be transition to Eliquis DISPOSITION expected to be discharged home when medically stable medicine follow up with Dr Lang Vital Signs: Date Time Temp Pulse Resp B/P (MAP) Pulse Ox O2 Delivery O2 Flow Rate FiO2 02/11/17 19:35 36.8 62 18 104/70 (81) 97 Room Air 02/11/17 16:00 Room Air 02/11/17 15:47 36.4 72 18 114/74 (87) 98 Room Air 02/11/17 15:05 63 20 112/75 (87) 98 Room Air 02/11/17 14:53 36.7 68 104/71 (82) 97 Room Air 02/11/17 14:44 101 14 101/65 (77) 95 Room Air 02/11/17 14:35 78 14 99/66 (77) 98 Room Air 02/11/17 14:23 92 14 105/71 (82) 96 Room Air 02/11/17 14:14 93 10 105/71 (82) 97 Room Air 02/11/17 14:04 87 12 105/71 (82) 98 Nasal Cannula 2 02/11/17 14:03 Nasal Cannula 2 02/11/17 14:00 82 12 98/69 96 Nasal Cannula 2 02/11/17 13:55 87 10 118/67 96 Nasal Cannula 2 02/11/17 13:51 Nasal Cannula 2 02/11/17 13:50 85 10 115/71 99 Nasal Cannula 2 02/11/17 13:45 78 15 123/77 96 Nasal Cannula 2 02/11/17 13:12 81 12 102/73 96 Room Air 02/11/17 12:00 Room Air 02/11/17 11:58 36.7 88 16 105/73 (84) 94 02/11/17 08:14 36.7 71 16 109/73 (85) 99 Room Air 02/11/17 08:00 Room Air 02/11/17 04:00 Room Air 02/11/17 03:50 36.8 75 16 112/70 (84) 98 Room Air 02/11/17 00:01 Room Air 02/10/17 23:35 36.9 85 16 113/73 (86) 98 Room Air Lab Results: Results Past 24 Hours Test 02/10/17 22:10 02/11/17 05:03 02/11/17 11:56 Range/Units Activated Partial Thromboplast Time 69.2 105.6 55.4 21.0-31.0 SECONDS Partial Thromboplastin Ratio 2.7 4.1 2.1 Total Creatine Kinase 232 205 39-308 U/L Creatine Kinase MB 4.4 3.7 0.5-3.6 ng/ml Creatine Kinase MB Ratio 1.9 1.8 0-3.0 Troponin I 0.022 0.019 0-0.045 ng/ml White Blood Count 9.02 4.8-10.8 K/uL Red Blood Count 4.86 4.7-6.1 M/uL Hemoglobin 14.1 14.0-18.0 g/dL Hematocrit 42.0 42-52 % Mean Corpuscular Volume 86.4 80-100 fL Mean Corpuscular Hemoglobin 29.0 25-34 pg Mean Corpuscular Hemoglobin Concent 33.6 32-36 g/dl RDW Standard Deviation 41.4 36.4-46.3 fL RDW Coefficient of Variation 13.0 11.5-14.5 % Platelet Count 245 130-400 K/uL Mean Platelet Volume 9.9 7.4-10.4 fL Sodium Level 141 136-145 mmol/L Potassium Level 3.8 3.5-5.1 mmol/L Chloride Level 106 98-107 mmol/L Carbon Dioxide Level 28 21-32 mmol/L Anion Gap 7.0 3-11 mmol/L Blood Urea Nitrogen 13 7-18 mg/dl Creatinine 1.10 0.60-1.40 mg/dl Est Creatinine Clear Calc Drug Dose 99.0 ml/min Estimated GFR () 89.0 Estimated GFR (Non- 76.8 BUN/Creatinine Ratio 11.6 10-20 Random Glucose 97 70-99 mg/dl Calcium Level 8.2 8.5-10.1 mg/dl Phosphorus Level 3.2 2.5-4.9 mg/dl Magnesium Level 2.1 1.8-2.4 mg/dl Triglycerides Level 69 0-150 mg/dl Cholesterol Level 163 0-200 mg/dl HDL Cholesterol 69 mg/dl LDL Cholesterol, Calculated 80 mg/dl VLDL Cholesterol, Calculated 14 mg/dl Cholesterol/HDL Ratio 2.4
[2017-02-12] MEDS: HEPARIN 25,000 UNIT/500ML D5W 500 ML IV PRN (01:16)
[2017-02-12 03:53] VITALS: BP 105/64; PULSE 70; TEMP 36.6; O2SAT 98
[2017-02-12 07:13] LABS: HEMATOCRIT 44.2 % (42-52); MEAN CORPUSCULAR HEMOGLOBIN 29.8 pg (25-34); MEAN CORPUSCULAR HGB CONC 34.6 g/dl (32-36); MEAN PLATELET VOLUME 9.8 fL (7.4-10.4); PLATELET COUNT 261 K/uL (130-400); RED BLOOD COUNT 5.14 M/uL (4.7-6.1); WHITE BLOOD COUNT 7.29 K/uL (4.8-10.8)
[2017-02-12 07:34] LABS: PARTIAL THROMBOPLASTIN RATIO 3.7
[2017-02-12 07:42] VITALS: BP 105/68; PULSE 54; TEMP 36.5; O2SAT 100
[2017-02-12 07:50] LABS: BUN/CREATININE RATIO 7.5 (10-20); CALCIUM 9.4 mg/dl (8.5-10.1); CREATININE 1.1 mg/dl (0.60-1.40); MAGNESIUM 2.1 mg/dl (1.8-2.4); POTASSIUM 3.9 mmol/L (3.5-5.1)
[2017-02-12 07:51] LABS: PHOSPHORUS 3.4 mg/dl (2.5-4.9)
[2017-02-12] MEDS: ASPIRIN 81 MG ECTAB PO SCH (09:00)
[2017-02-12] MEDS: DOFETILIDE 125 MCG CAP PO SCH ×2 (09:01→21:05)
[2017-02-12] MEDS ORDERED: APIXABAN 2.5 MG TAB PO ONE (09:46)
[2017-02-12] MEDS ORDERED: POTASSIUM CHLORIDE 10 MEQ TABCR PO ONE (10:30)
--- NOTE | 2017-02-12 11:20 | PROGRESS NOTE ---
DATE: 02/12/2017 The patient seen and examined. Chart, medications, telemetry reviewed. SUBJECTIVE: The patient notes no complaints this morning. Telemetry last evening demonstrated persistent atrial fibrillation with marked variability in heart rates, otherwise no issues. Longest RR interval was 2.5 seconds. OBJECTIVE: VITAL SIGNS: Heart rate is 54, blood pressure is 105/68. NECK: Thin. There is no jugular venous distention. Facial abrasions are healing. LUNGS: Clear. CARDIOVASCULAR: Irregularly irregular. ABDOMEN: Soft. EXTREMITIES: Free of edema. DATA: EKG this morning revealed atrial fibrillation, QT corrected to 419. IMPRESSION: A 51-year-old male with history of longstanding paroxysmal atrial fibrillation with recent syncopal spell, exertionally related. Digoxin and propafenone stopped. The patient begun on Tikosyn, first dose was administered this morning, and EKG post-administration demonstrates shortened QT interval of 372. We will plan on observing 48-72 hours in the hospital depending on clinical response, likely synchronized cardioversion if the patient does not spontaneously convert on his own. In the interim, we will switch heparin to apixaban, give additional supplement of potassium this morning, suspect the patient may require addition of low-dose beta mukesh to current regimen of Tikosyn. We will follow along in the hospital.
[2017-02-12 12:03] VITALS: BP 114/75; PULSE 71; TEMP 36.3; O2SAT 99
[2017-02-12] MEDS ORDERED: NURSING VERBAL MED ORDER ONE (12:15)
--- NOTE | 2017-02-12 12:58 | Progress Note ---
Internal Med Progress Note Date of Service: Feb 12, 2017. Provider Documentation: SUBJECTIVE: no complain of chest pain ,no palpitation or dizzy spell remains in Afib with rate controlled OBJECTIVE: Vital Signs-as noted below Exam: General-no sign of distress Eyes-sclera non icteric ENT-superficial laceration on face Neck-no JVD Lungs-CTA Heart-irregular Abdomen-soft,non tender Extremities-superficial laceration on knees and hands Neuro-AAO x3 no focal deficit Lab data as noted below. ASSESSMENT & PLAN: AFLUTTER /AFIB: Hx paroxysmal afib -has been on Rythmol /Digoxin presented with rapid afib /possible lead to syncope Cardiology eval appreciated cardiac stress test -negative for stress induced ischemia MARIJA shows no evidence of Atrial appendage thrombus antiarrhythmic changed to Tikosyn started on Eliquis today daily EKG to assess Qtc cont to monitor in tele may need DC cardioversion if dose not convert to sinus with Medication Cardiology following closely SYNCOPE : no further episode , possible due to above no complain of chest pain or SOB cardiac stress test negative for stress induced ischemia FULL CODE DVT PROPHYLAXIS : Eliquis DISPOSITION expected to be discharged home when medically stable medicine follow up with Dr Lang Follows with Cardiology in [place] Dr Kwame Almazan with [facility] interested to establish care with Cardiology in [place] Vital Signs: Date Time Temp Pulse Resp B/P (MAP) Pulse Ox O2 Delivery O2 Flow Rate FiO2 02/12/17 12:03 36.3 71 20 114/75 (88) 99 Room Air 02/12/17 12:00 Room Air 02/12/17 08:00 Room Air 02/12/17 07:42 36.5 54 20 105/68 (80) 100 Room Air 02/12/17 04:00 Room Air 02/12/17 03:53 36.6 70 16 105/64 (78) 98 Room Air 02/12/17 00:01 Room Air 02/11/17 23:26 36.9 58 16 91/57 (68) 96 Room Air 02/11/17 20:00 Room Air 02/11/17 19:35 36.8 62 18 104/70 (81) 97 Room Air 02/11/17 16:00 Room Air 02/11/17 15:47 36.4 72 18 114/74 (87) 98 Room Air 02/11/17 15:05 63 20 112/75 (87) 98 Room Air 02/11/17 14:53 36.7 68 104/71 (82) 97 Room Air 02/11/17 14:44 101 14 101/65 (77) 95 Room Air 02/11/17 14:35 78 14 99/66 (77) 98 Room Air 02/11/17 14:23 92 14 105/71 (82) 96 Room Air 02/11/17 14:14 93 10 105/71 (82) 97 Room Air 02/11/17 14:04 87 12 105/71 (82) 98 Nasal Cannula 2 02/11/17 14:03 Nasal Cannula 2 02/11/17 14:00 82 12 98/69 96 Nasal Cannula 2 02/11/17 13:55 87 10 118/67 96 Nasal Cannula 2 02/11/17 13:51 Nasal Cannula 2 02/11/17 13:50 85 10 115/71 99 Nasal Cannula 2 02/11/17 13:45 78 15 123/77 96 Nasal Cannula 2 02/11/17 13:12 81 12 102/73 96 Room Air Lab Results: Results Past 24 Hours Test 02/12/17 06:49 Range/Units White Blood Count 7.29 4.8-10.8 K/uL Red Blood Count 5.14 4.7-6.1 M/uL Hemoglobin 15.3 14.0-18.0 g/dL Hematocrit 44.2 42-52 % Mean Corpuscular Volume 86.0 80-100 fL Mean Corpuscular Hemoglobin 29.8 25-34 pg Mean Corpuscular Hemoglobin Concent 34.6 32-36 g/dl RDW Standard Deviation 41.0 36.4-46.3 fL RDW Coefficient of Variation 12.8 11.5-14.5 % Platelet Count 261 130-400 K/uL Mean Platelet Volume 9.8 7.4-10.4 fL Activated Partial Thromboplast Time 96.2 21.0-31.0 SECONDS Partial Thromboplastin Ratio 3.7 Sodium Level 139 136-145 mmol/L Potassium Level 3.9 3.5-5.1 mmol/L Chloride Level 103 98-107 mmol/L Carbon Dioxide Level 28 21-32 mmol/L Anion Gap 8.0 3-11 mmol/L Blood Urea Nitrogen 8 7-18 mg/dl Creatinine 1.10 0.60-1.40 mg/dl Est Creatinine Clear Calc Drug Dose 99.0 ml/min Estimated GFR () 89.0 Estimated GFR (Non- 76.8 BUN/Creatinine Ratio 7.5 10-20 Random Glucose 104 70-99 mg/dl Calcium Level 9.4 8.5-10.1 mg/dl Phosphorus Level 3.4 2.5-4.9 mg/dl Magnesium Level 2.1 1.8-2.4 mg/dl
[2017-02-12 15:46] VITALS: BP 118/84; PULSE 76; TEMP 36.8; O2SAT 96
[2017-02-12 19:35] VITALS: BP 105/74; PULSE 68; TEMP 36.9; O2SAT 99
[2017-02-12] MEDS: APIXABAN 2.5 MG TAB PO SCH (21:05)
[2017-02-13] VITALS (10 sets, daily range): BP systolic 91–113; BP diastolic 54–76; PULSE 76–104; TEMP 36.6–36.9; O2SAT 97–99
[2017-02-13 07:45] LABS: PARTIAL THROMBOPLASTIN RATIO 1.3
[2017-02-13 08:00] LABS: BUN/CREATININE RATIO 8.7 (10-20); CALCIUM 9.3 mg/dl (8.5-10.1); CREATININE 1.1 mg/dl (0.60-1.40); MAGNESIUM 2.2 mg/dl (1.8-2.4); POTASSIUM 4.2 mmol/L (3.5-5.1)
[2017-02-13 08:01] LABS: PHOSPHORUS 3.6 mg/dl (2.5-4.9)
[2017-02-13] MEDS: POTASSIUM CHLORIDE 10 MEQ TABCR PO SCH (09:05)
[2017-02-13] MEDS: DOFETILIDE 125 MCG CAP PO SCH ×2 (09:05→21:01)
[2017-02-13] MEDS: ASPIRIN 81 MG ECTAB PO SCH (09:05)
[2017-02-13] MEDS: APIXABAN 2.5 MG TAB PO SCH ×2 (09:06→21:01)
--- NOTE | 2017-02-13 14:46 | PROGRESS NOTE ---
DATE: 02/13/2017 CARDIOLOGY CONSULTATION PROGRESS NOTE The patient seen and examined. Chart, medications, telemetry reviewed. SUBJECTIVE: The patient feels well this morning, remains in atrial fibrillation with variable heart rate response. Notes no chest pains, dizziness, lightheadedness, syncope or near syncope. OBJECTIVE: VITAL SIGNS: Heart rate is 100, blood pressure is 107/70. NECK: Thin. There is no jugular venous distention. LUNGS: Clear. CARDIOVASCULAR: Irreg, irreg ABDOMEN: Soft, nontender. EXTREMITIES: Without cyanosis or clubbing. There is no peripheral edema. Abrasions are healing without excessive oozing. DATA: EKG this morning post-third dose of Hernadez reveals atrial fibrillation, rate of 75, QT corrected at 417. IMPRESSION AND PLAN: A 51-year-old male with history of paroxysmal atrial fibrillation, previously on antiarrhythmic therapy with digoxin and propafenone. Telemetry demonstrated elevated heart rates with ambulation as well as one 2.9-second pause. He is on appropriate therapies with Tikosyn, will anticipate elective synchronized cardioversion in a.m. if the patient does successfully convert her own. Potassium supplemented today. The patient is agreeable to plan, discussed in length. MTDD
--- NOTE | 2017-02-13 16:17 | Progress Note ---
Internal Med Progress Note Date of Service: Feb 13, 2017. Provider Documentation: SUBJECTIVE: offers no complain remains in Afib with rate controlled plan for DC cardioversion in AM of not spontaneously converted overnight OBJECTIVE: Vital Signs-as noted below Exam: General-no sign of distress Eyes-sclera non icteric ENT-superficial laceration on face Neck-no JVD Lungs-CTA Heart-irregular Abdomen-soft,non tender Extremities-superficial laceration on knees and hands Neuro-AAO x3 no focal deficit Lab data as noted below. ASSESSMENT & PLAN: AFLUTTER /AFIB: Hx paroxysmal afib -has been on Rythmol /Digoxin presented with rapid afib /possible lead to syncope Cardiology eval appreciated cardiac stress test -negative for stress induced ischemia MARIJA shows no evidence of Atrial appendage thrombus antiarrhythmic changed to Tikosyn started on Eliquis today daily EKG to assess Qtc cont to monitor in tele DC cardioversion in am is pt is not converted to sinus rhythm spontaneously overnight Cardiology following closely SYNCOPE : no further episode , possible due to above no complain of chest pain or SOB cardiac stress test negative for stress induced ischemia FULL CODE DVT PROPHYLAXIS : Eliquis DISPOSITION expected to be discharged home when medically stable medicine follow up with Dr Lang Follows with Cardiology in [place] Dr Kwame Almazan with [facility] interested to establish care with Cardiology in [place] with Dr Enciso at [facility] Vital Signs: Date Time Temp Pulse Resp B/P (MAP) Pulse Ox O2 Delivery O2 Flow Rate FiO2 02/13/17 18:45 36.9 82 16 102/72 (82) 97 Room Air 02/13/17 16:01 36.8 16 104/64 (77) 97 Room Air 02/13/17 16:00 98 Room Air 2.0 02/13/17 12:29 36.7 104 16 107/70 (82) 98 Room Air 02/13/17 12:00 98 Room Air 2.0 02/13/17 08:00 98 Room Air 2.0 02/13/17 07:56 36.8 82 18 100/73 (82) 98 Room Air 02/13/17 04:13 36.6 81 15 113/76 (88) 97 Room Air 02/13/17 04:00 Room Air 02/13/17 00:16 36.7 79 16 110/71 (84) 99 Room Air 02/13/17 00:00 Room Air Lab Results: Results Past 24 Hours Test 02/13/17 06:53 Range/Units Activated Partial Thromboplast Time 34.8 21.0-31.0 SECONDS Partial Thromboplastin Ratio 1.3 Sodium Level 139 136-145 mmol/L Potassium Level 4.2 3.5-5.1 mmol/L Chloride Level 103 98-107 mmol/L Carbon Dioxide Level 29 21-32 mmol/L Anion Gap 7.0 3-11 mmol/L Blood Urea Nitrogen 10 7-18 mg/dl Creatinine 1.10 0.60-1.40 mg/dl Est Creatinine Clear Calc Drug Dose 99.0 ml/min Estimated GFR () 89.0 Estimated GFR (Non- 76.8 BUN/Creatinine Ratio 8.7 10-20 Random Glucose 90 70-99 mg/dl Calcium Level 9.3 8.5-10.1 mg/dl Phosphorus Level 3.6 2.5-4.9 mg/dl Magnesium Level 2.2 1.8-2.4 mg/dl
--- NOTE | 2017-02-13 17:18 | Anesthesiology Progress Note ---
Anesthesia Progress Note Date of Service Feb 13, 2017. Progress Notes Patient is scheduled for cardioversion with Dr. Enciso on 02/14/17 for PAF. Had cardioversion 20+ years ago without difficulty. Patient snores but has had no TIMMY testing. Otherwise healthy and active (runs daily). NKDA. Medications significant for eliquis, ambien, metoprolol. EKG shows A fib. Labs WNL. Airway exam notable for MP2 and a chipped front tooth. Cardiac exam demonstrated irregular rhythm but no murmurs appreciated. 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 All questions answered. He is appropriate for anesthesia tomorrow and was advised to be NPO after midnight.
[2017-02-14] VITALS (9 sets, daily range): BP systolic 96–115; BP diastolic 64–77; PULSE 58–82; TEMP 36.5–36.6; O2SAT 97–100
[2017-02-14 06:43] LABS: HEMATOCRIT 45.6 % (42-52); MEAN CORPUSCULAR HEMOGLOBIN 28.5 pg (25-34); MEAN CORPUSCULAR HGB CONC 33.1 g/dl (32-36); MEAN PLATELET VOLUME 9.4 fL (7.4-10.4); PLATELET COUNT 252 K/uL (130-400); WHITE BLOOD COUNT 6.91 K/uL (4.8-10.8)
[2017-02-14 06:52] LABS: PARTIAL THROMBOPLASTIN RATIO 1.4
[2017-02-14 07:17] LABS: BUN/CREATININE RATIO 8.3 (10-20); CALCIUM 9.3 mg/dl (8.5-10.1); CREATININE 1.2 mg/dl (0.60-1.40); MAGNESIUM 2.2 mg/dl (1.8-2.4); POTASSIUM 4.3 mmol/L (3.5-5.1)
[2017-02-14] MEDS ORDERED: PROPOFOL IV EMULSION 10 MG/ML 20 ML VIAL IV ONE ×2 (07:21→07:45)
[2017-02-14] MEDS ORDERED: LIDOCAINE HCL 2% 2 ML VIAL (20MG/ML) ONE ×3 (07:22→07:45)
[2017-02-14] MEDS ORDERED: MIDAZOLAM HCL 1 MG/ML 2ML VIAL ONE (07:23)
[2017-02-14] MEDS ORDERED: FENTANYL CITRATE INJ 50 MCG/1 ML 2 ML VIAL ONE (07:24)
--- NOTE | 2017-02-14 08:09 | Anesthesiology Progress Note ---
Anesthesia Post Op Note Date & Time Feb 14, 2017 at 08:09 Vital Signs Pain Intensity: 0 Vital Signs Past 12 Hours Date Time Temp Pulse Resp B/P (MAP) Pulse Ox O2 Delivery O2 Flow Rate FiO2 02/14/17 07:58 57 16 95/60 (72) 97 Room Air 02/14/17 07:55 58 18 97/66 100 Nasal Cannula 4 02/14/17 07:50 82 18 115/77 100 Nasal Cannula 4 02/14/17 07:37 36.6 76 16 96/65 (75) 100 Room Air 02/14/17 04:00 Room Air 02/14/17 03:32 36.5 71 16 98/64 (75) 98 Room Air 02/14/17 00:01 Room Air 02/13/17 23:26 36.6 76 16 91/54 (66) 97 Room Air Notes Mental Status: alert / awake / arousable, participated in evaluation Pt Amnestic to Procedure: Yes Nausea / Vomiting: adequately controlled Pain: adequately controlled Airway Patency, RR, SpO2: stable & adequate BP & HR: stable & adequate Hydration State: stable & adequate Anesthetic Complications: no major complications apparent Doing well. Converted to SR. VSS.
--- NOTE | 2017-02-14 08:10 | Cardiology Procedure Brief Nt ---
Preliminary Cardiology Note Procedure Date Feb 14, 2017. 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
[2017-02-14] MEDS ORDERED: ELQ25 PO (08:52)
[2017-02-14] MEDS ORDERED: DOFE125C PO (08:52)
[2017-02-14] MEDS ORDERED: POTA10CA28 PO (08:52)
--- NOTE | 2017-02-14 08:52 | Discharge Instructions ---
Discharge Instructions Date of Service Feb 14, 2017. Admission Reason for Admission: Atrial Flutter, Syncope Discharge Discharge Diagnosis / Problem: A FLUTTER /AFIB /SYNCOPE Discharge Goals Goal(s): Increase independence, Improve disease control, Diagnostic testing, Therapeutic intervention Activity Recommendations Activity Limitations: resume your previous activity . Instructions / Follow-Up Instructions / Follow-Up HOSPITAL FOLLOW UP : 02/15/2017 11:20 AM Craig Lang MD General Internal Medicine [facility] CARDIOLOGY FOLLOW UP WITH DR RACHEL PACHECO IN 2 WEEKS, OFFICE WILL CALL WITH APPOINTMENT Current Hospital Diet Patient's current hospital diet: AHA Diet (Heart Healthy) Discharge Diet Recommended Diet: AHA Diet (Heart Healthy) Pending Studies Studies pending at discharge: no Laboratory Results Lipid Panel Test 02/11/17 05:03 Range/Units Triglycerides Level 69 0-150 mg/dl Cholesterol Level 163 0-200 mg/dl HDL Cholesterol 69 mg/dl Cholesterol/HDL Ratio 2.4 LDL Cholesterol, Calculated 80 mg/dl Medical Emergencies . Who to Call and When: Medical Emergencies: If at any time you feel your situation is an emergency, please call 911 immediately. . Non-Emergent Contact Non-Emergency issues call your: Primary Care Provider . . "Provider Documentation" section prepared by Leisa Grimes. . VTE Core Measure Inpt VTE Proph given/why not?: Other Anticoagulation (IV heparin )
[2017-02-14] MEDS: DOFETILIDE 125 MCG CAP PO SCH (09:00)
[2017-02-14] MEDS: APIXABAN 2.5 MG TAB PO SCH (09:00)
[2017-02-14] MEDS: ASPIRIN 81 MG ECTAB PO SCH (09:00)
[2017-02-14] MEDS: POTASSIUM CHLORIDE 10 MEQ TABCR PO SCH (09:01)
--- NOTE | 2017-02-14 09:16 | CARDIOVERSION ---
DATE OF OPERATION: 02/14/2017 SYNCHRONIZED ELECTRICAL CARDIOVERSION DATE OF PROCEDURE: 02/14/2017 INDICATIONS: Atrial fibrillation with rapid ventricular response. BRIEF HISTORY: The patient is a 51-year-old male with long-standing history of paroxysmal atrial fibrillation with recent lapse into atrial fibrillation, antiarrhythmics were initiated changing from propafenone digoxin combination to Tikosyn during this admission. He is referred now for synchronized electrical cardioversion. PROCEDURE: After the procedure and risks were explained in detail to the patient informed consent was obtained. The patient was sedated via anesthesia consultation and synchronized electrical cardioversion performed using single 125 joule biphasic shock with successful conversion to sinus rhythm. Post procedure patient aroused having tolerated well. EKG reveals sinus rhythm at a rate of 60 with normal QT interval. RECOMMENDATIONS: Continued medical therapy. I attest to the content of the Intraoperative Record and any orders documented therein. Any exception s are noted below.
--- NOTE | 2017-02-14 10:22 | PROGRESS NOTE ---
DATE: 02/14/2017 The patient seen and examined. Chart, medications, telemetry reviewed. SUBJECTIVE: The patient feels well and he underwent synchronized electrical cardioversion earlier this morning. EKG now done post-procedure reveals sinus bradycardia with a QT corrected of 402. Notes no complaints or discomfort. OBJECTIVE: VITAL SIGNS: Heart rate is 60. Blood pressure is 108/72. NECK: Thin. There is no jugular venous distention. LUNGS: Clear. CARDIOVASCULAR: Regular. There is no S3 gallop. ABDOMEN: Soft. EXTREMITIES: Without edema. IMPRESSION: A 51-year-old male with history of paroxysmal atrial fibrillation with exercise-induced syncope. No overt evidence of ischemia with patient presenting in atrial fibrillation. He has now been changed from antiarrhythmic therapy with propafenone and digoxin to Tikosyn 500 mcg twice per day with good tolerance and he has undergone successful synchronized electrical cardioversion earlier this morning. PLAN: The patient may be discharged to home. I would send home with the evening dose of Tikosyn for today. Plan follow up with cardiology in 2 weeks' time gradual and reintroduction activities, avoid strenuous activities until seen.
--- NOTE | 2017-02-14 13:34 | Discharge Summary ---
Discharge Summary Date of Service Feb 14, 2017. Discharge Summary Admission Date: Feb 11, 2017 at 12:42 Discharge Date: Feb 14, 2017 Discharge Disposition: Home Principal Diagnosis: A FLUTTER /AFIB /SYNCOPE Procedures: CARDIAC STRESS TEST ECHO DC CARDIOVERSION Consultations: [facility] [address] CARDIOLOGY Medication Reconciliation New Medications: Apixaban (Eliquis) 2.5 Mg Tab 5 MG PO BID for 30 Days, #120 TAB 3 Refills Dofetilide (Tikosyn) 125 Mcg Cap 500 MCG PO BID for 30 Days, #240 CAP 2 Refills Potassium Chloride (Micro-K Ext Rel) 10 Meq Capcr 10 MEQ PO DAILY for 30 Days, #30 TABS Continued Medications: Aspirin (Aspirin Ec) 81 Mg Tab 81 MG PO DAILY Discontinued Medications: Propafenone Hcl (Rythmol Sr) 225 Mg Cap 300 MG PO BID Referrals At Discharge Follow up Referrals: Reefer Engineer Referral - Please Call For Appointment with Vern Enciso M.D. Admission Information HPI (per Admitting provider): this a 51 yo Male with hx of Paroxysmal Afib Dx at age 27 , has been rate controlled with Rythmol( Propafenone ) and Digoxin -on Aspirin 81 mg for stroke prevention pt follows with EP Cardiology with [facility] in [place] , pt was participating in IntraStage run today , after running for a mile -he felt very warm and lightheaded , synopsized, fell on ground face down , mentions of losing consciousness for brief 10-15 sec , sustained mild bruise , laceration on face , hands and knees He managed to get up instantly , did not had any SOB , chest heaviness -retuned back to race and completed IntraStage run he continued to experience palpitation ,came to ER for evaluation found to be in rapid Afib /flutter Physical Exam (per Admitting): General Appearance: no apparent distress ENT: + pertinent finding (bruise in lower face and upper and lowe lips from fall , no active bleeding ) Neck: supple Respiratory/Chest: lungs clear, normal breath sounds Cardiovascular: + irregularly irregular Abdomen/GI: non tender, soft Neurologic/Psych: no motor/sensory deficits, alert, oriented x 3 Skin: + pertinent finding (briuse in knee , hands and face /superfical laceration due to fall ) Hospital Course no complain of chest pain or SOB/ s/p successfully DC cardioversion today remains in sinus with rate controlled rate medication adjusted by Cardiology -pt will continue with Tikosyn started on Eliquis D/matteo Rythmol and digoxin pt will be seen by Cardiology Dr Enciso in [facility] in a week p/e : A/P AFLUTTER /AFIB: Hx paroxysmal afib -has been on Rythmol /Digoxin presented with rapid afib /possible lead to syncope Cardiology eval appreciated cardiac stress test -negative for stress induced ischemia MARIJA shows no evidence of Atrial appendage thrombus antiarrhythmic changed to Tikosyn started on Eliquis s/p successful DC cardioversion this am pt is stable to be discharged home with Eliquis and Tikosyn SYNCOPE : no further episode , possible due to above no complain of chest pain or SOB cardiac stress test negative for stress induced ischemia FULL CODE DVT PROPHYLAXIS : Eliquis DISPOSITION discharged home today medicine follow up with Dr Lang Cardiology follow up with Dr Vern Enciso in 2 weeks Follows with Cardiology in [place] Dr Kwame Almazan with [facility] [address] -like to continue to follow up as a yearly basis medical records form this Hospital stay faxed to Dr Almazan's office for continuation of care Total time spent on discharge = 40 m ins This includes examination of the patient, discharge planning, medication reconciliation, and communication with other providers. Discharge Instructions DI: Medical v4 Discharge Instructions Date of Service Feb 14, 2017. Admission Reason for Admission: Atrial Flutter, Syncope Discharge Discharge Diagnosis / Problem: A FLUTTER /AFIB /SYNCOPE Discharge Goals Goal(s): Increase independence, Improve disease control, Diagnostic testing, Therapeutic intervention Activity Recommendations Activity Limitations: resume your previous activity . Instructions / Follow-Up Instructions / Follow-Up HOSPITAL FOLLOW UP : 02/15/2017 11:20 AM Craig Lang MD General Internal Medicine [facility] CARDIOLOGY FOLLOW UP WITH DR VERN ENCISO IN 2 WEEKS, OFFICE WILL CALL WITH APPOINTMENT Current Hospital Diet Patient's current hospital diet: AHA Diet (Heart Healthy) Discharge Diet Recommended Diet: AHA Diet (Heart Healthy) Pending Studies Studies pending at discharge: no Laboratory Results Lipid Panel Test 02/11/17 05:03 Range/Units Triglycerides Level 69 0-150 mg/dl Cholesterol Level 163 0-200 mg/dl HDL Cholesterol 69 mg/dl Cholesterol/HDL Ratio 2.4 LDL Cholesterol, Calculated 80 mg/dl Medical Emergencies . Who to Call and When: Medical Emergencies: If at any time you feel your situation is an emergency, please call 911 immediately. . Non-Emergent Contact Non-Emergency issues call your: Primary Care Provider . . "Provider Documentation" section prepared by Leisa Grimes. . VTE Core Measure Inpt VTE Proph given/why not?: Other Anticoagulation (IV heparin ) Additional Copies To Cliff Warren M.D., Sheldon D., M.D.
== END 2017-02-14 11:53 | disposition home or self-care (01) | DRG 310 ==
LOC: C.EDB 11:51 → C.2T 15:20 → ENRESERV 15:33 → OBSVTOIN 02-11 12:42
PROVIDERS: ADMIT Hospitalist; ATTEND Hospitalist
PROC: 0HQFXZZ Repair Right Hand Skin, External Approach (ICD-10-PCS; principal; 2017-02-10)
PROC: 5A2204Z Restoration of Cardiac Rhythm, Single (ICD-10-PCS; 2017-02-14)
DX: I48.0 Paroxysmal atrial fibrillation (principal); I48.92 Unspecified atrial flutter; R55 Syncope and collapse; S61.411A Laceration without foreign body of right hand, initial encounter; S00.511A Abrasion of lip, initial encounter; S80.211A Abrasion, right knee, initial encounter; S80.212A Abrasion, left knee, initial encounter; Z79.82 Long term (current) use of aspirin; Z79.899 Other long term (current) drug therapy; W19.XXXA Unspecified fall, initial encounter; Y93.02 Activity, running